=== PATIENT | female | born 1970 | race Caucasian/White ===

== ENCOUNTER 2017-01-15 13:07 | Emergency (ER) | payer OTHER ==
--- NOTE | ~2017-01-15 | EKG ---
PATIENT: ALTAGRACIA FLORENCE UNIT #: [id number] Ventricular Rate: 95 BPM Atrial Rate: 95 BPM P-R Interval: 158 ms QRS Duration: 82 ms Q-T Interval: 346 ms QTC Calculation(Bezet): 434 ms P New Era: 43 degrees Calculated R New Era: 23 degrees Calculated T New Era: 18 degrees Diagnosis Line: Normal sinus rhythm Diagnosis Line: Possible Left atrial enlargement Diagnosis Line: ST abnormality, possible digitalis effect Diagnosis Line: Abnormal ECG Diagnosis Line: No previous ECGs available Diagnosis Line: Confirmed by JOSE SNEED MD ([id number]) on Diagnosis Line: 01/17/2017 4:45:16 PM INTERPRETING MD: NEDRA LYNCH
--- NOTE | ~2017-01-15 | CR72 ---
[facility] A Service of [facility] RADIOLOGY TEXT RESULTS PATIENT: ALTAGRACIA FLORENCE LOCATION: SED : 74 UNIT #: [id number] AGE: [address]: Chandrakant Mccormick MD SEX: F ORDER DR: [id number] [place] [id number] MR#: [id number] Acc #: [id number] NAME: ALTAGRACIA FLORENCE : 1970 SEX: F STUDY DATE/TIME: 01/15/2017 13:23 UNIT: SED ROOM: STUDY DESCRIPTION: CR Chest Single View Portable Attending Physician: Chandrakant Mccormick M.D. Ordering Physician: Chandrakant Mccormick M.D. Primary Care Physician: Chad Light D.O. MEDICAL IMAGING REPORT This report is preliminary unless electronic signature is present. EXAM Portable chest, 01/15/17, [facility]. HISTORY 46-year-old woman chest pain, left arm pain. Symptoms x1 week. Patient indicates pain radiating into left shoulder, arm and back. Short of air. COMPARISON None. FINDINGS AP, upright portable chest demonstrates normal heart size. Hilar structures and mediastinal contours are preserved. Bilateral lungs are expanded and clear. Costophrenic angles are clear. IMPRESSION Negative chest. No acute chest finding. Dictated by... Aftab Carr M.D. THIS IS AN ELECTRONICALLY VERIFIED REPORT Aftab Carr M.D. at 01/16/2017 9:39 AM KD/niki TD: 01/15/2017 16:35 JOB #: [id number] MEDICAL IMAGING REPORT Page 1 of 1
[2017-01-15 13:33] LABS: BASOPHIL# 0.1 X10e3 (0-0.3); BASOPHIL% 1.1 % (0-2.5); EOSINOPHIL# 0.2 X10e3 (0-0.7); EOSINOPHIL% 1.8 % (0.0-7.0); HEMOGLOBIN 14.3 gm/dL (12.0-16.0); LYMPHOCYTE# 2.9 X10e3 (1.0-3.5); MEAN CELL VOLUME 82.7 FL (83-96); MEAN CORPUSCULAR HEMOGLOBIN 27.5 PG (28-34); MEAN CORPUSCULAR HGB CONC 33.3 g/dL (30-36); MEAN PLATELET VOLUME 10.8 FL (6.5-11.5); MONOCYTE# 0.9 X10e3 (0-1.0); MONOCYTE% 9.9 % (3.0-12.0); NEUTROPHIL# 5.2 X10e3 (1.5-7.1); NEUTROPHIL% 56.2 % (40-75); PLATELET COUNT 233 X10e3 (140-420); RED CELL DISTRIBUTION WIDTH 15.1 % (11.0-15.5); WHITE BLOOD COUNT 9.3 X10e3 (4.0-10.5)
[2017-01-15 13:39] LABS: POC - CKMB <1.0 ng/mL (0.0-7.9); POC - TROPONIN <0.05 ng/mL (<=0.05)
[2017-01-15 13:41] LABS: DIFF IND NO
[2017-01-15 13:55] LABS: ALBUMIN SERUM 4.7 g/dL (3.5-5.0); BILIRUBIN,TOTAL 0.4 mg/dL (0.2-2.0); CALCIUM SERUM 10.3 mg/dL (8.4-10.2); CREATININE SERUM 0.7 mg/dL (0.6-1.4); GLOM FILT RATE Estimated 105.4 mL/min (>60); POTASSIUM 3.6 mmol/L (3.5-5.1); PROTEIN TOTAL SERUM 8.6 g/dL (6.0-8.3)
== END 2017-01-15 14:24 | disposition home or self-care (01) ==
LOC: SED 13:07
PROVIDERS: Emergency Medicine
DX: R07.89 Other chest pain (principal); M79.602 Pain in left arm
CPT/HCPCS: 36415; 71010; 80053; 82553; 84484; 85025; 93005; 99285